=== PATIENT | female | born 1980 | race Caucasian/White ===

== ENCOUNTER 2024-02-13 09:31 | Inpatient (IN) | payer BC ==
[~2024-02-13] VITALS: Ht 165.1 cm; Wt 186.0 kg
[2024-02-13] MEDS ORDERED: ALDACTONE25 MG PO (09:35)
[2024-02-13] MEDS ORDERED: LASIX20 MG (09:36)
[2024-02-13] MEDS ORDERED: KRISTALOSE10 GM PO (09:36)
--- NOTE | 2024-02-13 09:36 | NUR ---
SE REIBE PACIENTE ALERTA Y ORIENTADA X3. EN COMPANIA DE PARAMEDICOS Y FAMILIAR QUIENES REFIEREN QUE PACIENTE VILCHIS ESTADO EXPERIMENTANDO DOLOR ABDOMINAL Y DIARREA HACE DOS SALAZAR. SE DIGNA SV Y SE UBICA EN OBSERVACION
[2024-02-13] MEDS ORDERED: FAMOtidine 10 MG/ML (4ML VIAL) IV STA (10:05)
[2024-02-13] MEDS ORDERED: LACTULOSE 20 G/30 ML BLIST.PACK PO STA (10:05)
[2024-02-13] MEDS ORDERED: 0.9 % SODIUM CHLORIDE 1,000 ML IV STA (10:06)
[2024-02-13] MEDS ORDERED: hydrOXYzine PAMOATE 50 MG CAPSULE PO STA (10:08)
--- NOTE | 2024-02-13 10:29 | NUR ---
PACIENTE EVALUADO POR QUIEN [place] MEDICO,RN BREAUX EDUCA ACERCA DEL MISMO Y REFIERE ENTENDER. SE CANALIZA Y COLECTAN MUESTRAS DE LABORATORIO MEDIANTE MEDIDAS ASEPTICAS. SE ADMINISTRAN MEDICAMENTOS FRANKI ORDEN MEDICA.
[2024-02-13 10:44] LABS: HEMATOCRIT 30.5 % (36.0-45.00); HEMOGLOBIN 10.2 g/dL (12.0-15.00); MEAN CELL VOLUME 101.9 fL (80.00-100.00); MEAN CORPUSCULAR HEMOGLOBIN 33.9 pg (27.00-32.0); MEAN CORPUSCULAR HGB CONC 33.3 g/dl (32.0-36.0); PLATELET COUNT 67 K/uL (150-450); RED CELL DISTRIBUTION WIDTH 18.7 % (11.5-14.5)
[2024-02-13 11:11] LABS: INR 1.52; PARTIAL THROMBOPLASTIN TIME 34.6 SECONDS (22.0-34.0)
[2024-02-13 11:12] LABS: ALBUMIN 2.7 gm/dL (3.4-5.0); BILIRUBIN TOTAL 5.24 mg/dL (0.3-1.2); BILIRUBIN,CONJUGATED 2.58 mg/dL (0.0-0.2); BILIRUBIN,UNCONJUGATED 2.66 mg/dL (0.0-0.6); CALCIUM 7.7 mg/dL (8.5-10.1); CREATININE SERUM 3.19 mg/dL (0.55-1.02); GFR 15.79; POTASSIUM 3.45 mEq/L (3.5-5.1); TOTAL PROTEIN 6.8 gm/dL (6.4-8.2)
[2024-02-13 11:13] LABS: PROTHROMBIN TIME 16.1 SECONDS (9.0-11.5)
[2024-02-13 11:56] LABS: URINE APPEARANCE Clear; URINE BILIRRUBIN Negative (NEGATIVE); URINE BLOOD Negative; URINE COLOR Yellow; URINE GLUCOSE Negative (NEGATIVE); URINE KETONE Negative (NEGATIVE); URINE LEUKOCYTE Negative; URINE NITRATE Negative; URINE PROTEIN Negative (NEGATIVE)
[2024-02-13 11:59] LABS: URINE BACTERIA 304.7 uL (0.0-1933); URINE EPITHELIAL CELLS 10.2 uL (0.0-38.8); URINE WBC 2.8 uL (0.0-23.2)
[2024-02-13 12:05] LABS: URINE CAST 0.44 uL (0.0-1.40); URINE RBC 0.8 uL (0.0-20.8)
[2024-02-13] MEDS ORDERED: CEFTRIAXONE SODIUM 2,000 MG in 0.9 % SODIUM CHLORIDE 100 ML IV SCH (19:23)
[2024-02-13] MEDS ORDERED: THIAMINE HCL 100 MG/ML 2 ML VIAL IV SCH (19:24)
[2024-02-13] MEDS ORDERED: PANTOPRAZOLE SODIUM 40 MG/VIAL VIAL IV SCH (19:25)
[2024-02-13] MEDS ORDERED: LORazepam 2 MG/ML VIAL IM ONE (19:30)
[2024-02-13] MEDS ORDERED: ONDANSETRON HCL 4 MG in 0.9 % SODIUM CHLORIDE 50 ML IV PRN (19:30)
[2024-02-13] MEDS ORDERED: 0.9 % SODIUM CHLORIDE 1,000 ML IV SCH (19:30)
[2024-02-13] MEDS ORDERED: LACTULOSE 20 G/30 ML BLIST.PACK PO ONE (19:30)
[2024-02-13] MEDS ORDERED: 0.9 % SODIUM CHLORIDE 1,000 ML IV ONE (19:30)
[2024-02-13] MEDS ORDERED: OCTREOTIDE ACETATE 0.05MG/ML (50MCG/ML) AMPUL IV ONE (19:30)
[2024-02-13] MEDS ORDERED: LACTULOSE 10 G/15 ML ML PO SCH (21:00)
[2024-02-14 02:24] VITALS: BP 102/70; O2SAT 100
[2024-02-14] MEDS ORDERED: PROPRANOLOL HCL 20 MG TABLET PO SCH (09:00)
[2024-02-14] MEDS ORDERED: CHLORDIAZEPOXIDE HCL 25 MG CAPSULE PO SCH (09:00)
[2024-02-14] MEDS ORDERED: SPIRONOLACTONE 25 MG TABLET PO SCH (09:00)
[2024-02-14 09:10] VITALS: BP 101/72; O2SAT 99
[2024-02-14 18:04] VITALS: BP 90/54; O2SAT 98
[2024-02-14] MEDS ORDERED: LACTULOSE 20 G/30 ML BLIST.PACK PO SCH (21:00)
[2024-02-14] MEDS ORDERED: ALBUMIN HUMAN-25 0.25GM/ML (50ML) VIAL IV SCH (21:19)
[2024-02-14] MEDS ORDERED: MIDODRINE HCL 5 MG TABLET PO SCH (21:19)
[2024-02-15 01:25] VITALS: BP 98/67; O2SAT 100
[2024-02-15 08:26] VITALS: BP 122/62; O2SAT 98
[2024-02-15 09:57] LABS: ALBUMIN 3.3 gm/dL (3.4-5.0); BILIRUBIN TOTAL 6.51 mg/dL (0.3-1.2); CALCIUM 8.4 mg/dL (8.5-10.1); CREATININE SERUM 2.49 mg/dL (0.55-1.02); GFR 21.02; GLOBULINA 3.4 G/DL (2.4-3.5); POTASSIUM 3.48 mEq/L (3.5-5.1); TOTAL PROTEIN 6.7 gm/dL (6.4-8.2)
[2024-02-15] MEDS ORDERED: ALBUMIN HUMAN 100 ML VIAL IV SCH (13:00)
[2024-02-15 18:05] VITALS: BP 112/74
[2024-02-16 02:20] VITALS: BP 122/66; O2SAT 99
[2024-02-16 08:55] VITALS: BP 100/62; O2SAT 100; O2SAT 90
[2024-02-16 09:50] LABS: BILIRUBIN TOTAL 7.38 mg/dL (0.3-1.2); CALCIUM 8.7 mg/dL (8.5-10.1); CREATININE SERUM 2.18 mg/dL (0.55-1.02); GFR 24.5; GLOBULINA 2.8 G/DL (2.4-3.5); TOTAL PROTEIN 6.8 gm/dL (6.4-8.2)
[2024-02-16 10:11] LABS: POTASSIUM 2.98 mEq/L (3.5-5.1)
[2024-02-16] MEDS ORDERED: POTASSIUM CHLORIDE IN WATER 100 ML IV NR (11:00)
[2024-02-16] MEDS ORDERED: POTASSIUM CHLORIDE IN WATER 100 ML IV SCH ×2 (17:00→20:00)
[2024-02-16] MEDS ORDERED: MAGNESIUM SULFATE IN WATER 50 ML IV NR (18:00)
[2024-02-16 20:10] VITALS: BP 99/65
[2024-02-16] MEDS ORDERED: LACTULOSE 20 G/30 ML BLIST.PACK PO SCH (21:00)
[2024-02-17 02:57] VITALS: BP 97/60; O2SAT 97
[2024-02-17 06:40] LABS: ALBUMIN 3.6 gm/dL (3.4-5.0); BILIRUBIN TOTAL 6.06 mg/dL (0.3-1.2); CALCIUM 8.4 mg/dL (8.5-10.1); CREATININE SERUM 1.71 mg/dL (0.55-1.02); GFR 32.43; GLOBULINA 2.5 G/DL (2.4-3.5); MAGNESIUM 2.1 mg/dL (1.8-2.4); POTASSIUM 3.49 mEq/L (3.5-5.1); TOTAL PROTEIN 6.1 gm/dL (6.4-8.2)
[2024-02-17] MEDS ORDERED: SPIRONOLACTONE 25 MG TABLET PO SCH (09:00)
[2024-02-17 09:13] VITALS: BP 86/53; O2SAT 100
[2024-02-17] MEDS ORDERED: POTASSIUM CHLORIDE 20MEQ/100ML H2O PB IV NR (13:00)
[2024-02-17] MEDS ORDERED: MIDODRINE HCL 5 MG TABLET PO SCH (13:00)
[2024-02-17 13:18] LABS: HEMATOCRIT 24.9 % (36.0-45.00); MEAN CELL VOLUME 100.3 fL (80.00-100.00); MEAN CORPUSCULAR HGB CONC 33.7 g/dl (32.0-36.0); RED BLOOD COUNT 2.48 M/uL (4.00-6.00); RED CELL DISTRIBUTION WIDTH 17.8 % (11.5-14.5)
[2024-02-17 13:22] LABS: HEMOGLOBIN 8.4 g/dL (12.0-15.00); MEAN CORPUSCULAR HEMOGLOBIN 33.8 pg (27.00-32.0); PLATELET COUNT 39 K/uL (150-450)
[2024-02-17 18:33] VITALS: BP 90/50; O2SAT 100
[2024-02-18 03:07] VITALS: BP 102/65; O2SAT 97
[2024-02-18 06:41] LABS: ALBUMIN 3.7 gm/dL (3.4-5.0); BILIRUBIN TOTAL 5.81 mg/dL (0.3-1.2); CALCIUM 8.7 mg/dL (8.5-10.1); CREATININE SERUM 1.51 mg/dL (0.55-1.02); GFR 37.43; GLOBULINA 2.7 G/DL (2.4-3.5); POTASSIUM 3.69 mEq/L (3.5-5.1); TOTAL PROTEIN 6.4 gm/dL (6.4-8.2)
[2024-02-18 10:27] VITALS: BP 83/54; O2SAT 99
== END 2024-02-18 15:45 | disposition home or self-care (01) | DRG 441 ==
LOC: ER 09:31 → MEDJ 20:00
PROVIDERS: General Practice; ADMIT Internal Medicine; ATTEND Internal Medicine
PROC: BW21ZZZ Computerized Tomography (CT Scan) of Abdomen and Pelvis (ICD-10-PCS; principal; 2024-02-14)
PROC: BW28ZZZ Computerized Tomography (CT Scan) of Head (ICD-10-PCS; 2024-02-16)
DX: K76.82 Hepatic encephalopathy (principal); K76.7 Hepatorenal syndrome; N17.8 Other acute kidney failure; K70.30 Alcoholic cirrhosis of liver without ascites; R74.01 Elevation of levels of liver transaminase levels; R41.0 Disorientation, unspecified